=== PATIENT | male | born 1985 | race Two or more races ===

== ENCOUNTER 2023-11-24 03:46 | Emergency (ER) | payer OTHER ==
[~2023-11-24] VITALS: Ht 172.7 cm; Wt 80.0 kg
[2023-11-24 04:06] VITALS: BP 130/82; PULSE 110; RESP 18; TEMP 98.6; O2SAT 98
== END 2023-11-24 04:11 ==
LOC: ER 03:48
DX: R10.9 Unspecified abdominal pain (principal); V89.2XXA Person injured in unspecified motor-vehicle accident, traffic, initial encounter; Y93.89 Activity, other specified; Y92.89 Other specified places as the place of occurrence of the external cause; Y99.8 Other external cause status
CPT/HCPCS: 99283